=== PATIENT | male | born 1990 | race Caucasian/White ===

== ENCOUNTER 2016-10-27 18:45 | Emergency (ER) | payer OTHER ==
[~2016-10-27] VITALS: Ht 177.8 cm; Wt 59.0 kg
[2016-10-27 21:00] VITALS: BP 118/68
[2016-10-27] MEDS ORDERED: IBUPROFEN 800800 M1 PO (21:04)
== END 2016-10-27 21:23 | disposition home or self-care (01) ==
LOC: ER 18:45
DX: H10.211 Acute toxic conjunctivitis, right eye (principal)